=== PATIENT | female | born 1985 | race Caucasian/White ===

== ENCOUNTER 2017-09-09 14:25 | Emergency (ER) | payer SELFPAY ==
[2017-03-03 05:11] VITALS: Wt 51.3 kg
[~2017-09-09 14:25] MED LIST: AZIT-18 PO; BIRTH CONTROL PO; CYAN25004 PO; CYCL-343 PO; DOCU-416 PO; Docusate Calcium PO; FAMO-67 PO; IBUP-2708 PO; IBUP800T37 PO; Ibuprofen PO; LOR5/325 PO; Lanolin TP; Multivit/Min/Fol Ac/Iron/Pren PO; NIF10 PO; ONDA4TAB PO; OXYC-854 PO; PANT20TA27 PO; PANT40TA65 PO; PRED20TA6 PO; PREN-127 PO; RANI-324 PO; [UNRECOGNIZED DRUG - CODE] FT
[2017-09-09] MEDS ORDERED: ONDANSETRON 4 MG/2 ML VIAL IVP ONE (14:40)
[2017-09-09] MEDS ORDERED: NS(*) 0.9% 1000 ML BAG 1,000 ML IV ONE ×2 (14:40→16:50)
--- NOTE | 2017-09-09 14:43 | ER Report ---
History and Physical Time Seen By MD: 14:30 Hx. of Stated Complaint: all over abdominal pain HPI/ROS CHIEF COMPLAINT: Abdominal and back pain HISTORY OF PRESENT ILLNESS: 32-year-old female long history of pyelonephritis and frequent urinary tract infections also history of celiac disease comes to the emergency department today with complaint of increased frequency of urination and bilateral flank pain and subjective low-grade fevers nausea without vomiting no diarrhea pain is localized the suprapubic region without radiation no additional complaints noted REVIEW OF SYSTEMS: Respiratory: No cough, no dyspnea. Cardiovascular: No chest pain, no palpitations. Gastrointestinal: Suprapubic tenderness flank pain Musculoskeletal: Bilateral flank pain Remainder of the 14 system rev: Yes Allergies: Coded Allergies: gluten (Unverified Allergy, Intermediate, DIARRHEA, 09/09/17) Home Meds Discontinued Reported Medications Famotidine (FAMOTIDINE) 20 Mg Tablet, 20 MG PO QDAY, TAB 02/16/17 Ranitidine Hcl (ZANTAC) 150 Mg Tablet, 150 MG PO DAILY, TAB 07/29/16 Vits W-Ca,Fe,Fa(<1MG) ( VITAMINS) 1 Each Tablet, 1 EACH PO DAILY, TAB 07/29/16 Discontinued Scripts Ibuprofen (IBUPROFEN) 800 Mg Tablet, 800 MG PO Q8H@0300,1100,1900, #30 TAB 0 Refills Prov:JOSE NASH DO 03/04/17 Hydrocodone Bit/Acetaminophen (HYDROCODON-ACETAMINOPHEN 5-325) 1 Each Tablet, 1- 2 EACH PO Q4H Y for PAIN, #30 TAB 0 Refills Prov:JOSE NASH DO 03/04/17 Reviewed Nurses Notes: Yes Old Medical Records Reviewed: Yes Hx Smoking: No Smoking Status: Never Smoker Exposure to Second Hand Smoke?: No Hx Substance Use Disorder: No Hx Alcohol Use: No Constitutional Vital Sign - Last 24 Hours 09/09/17 09/09/17 09/09/17 09/09/17 14:30 14:55 15:10 15:25 Temp 98.8 Pulse 67 67 60 63 Resp 14 B/P (MAP) 110/69 Pulse Ox 96 93 93 97 O2 Delivery Room Air 09/09/17 09/09/17 09/09/17 15:30 15:45 16:00 Pulse 79 64 69 Pulse Ox 96 95 95 Intake and Output 09/09/17 09/09/1718 15:00 23:00 07:00 Intake Total 1000 ml Balance 1000 ml Physical Exam General Appearance: The patient is alert, has no immediate need for airway protection and no current signs of toxicity. [ ] Eyes: Pupils equal and round no injection. Respiratory: Chest is non tender, lungs are clear to auscultation. Cardiac: regular rate and rhythm [ ] Gastrointestinal: Abdomen is soft mild tenderness to deep palpation in suprapubic region otherwise unremarkable rebound guarding or masses Musculoskeletal: Neck: Neck is supple and non tender. Extremities have full range of motion and are non tender. Skin: No rashes or lesions. [ ] DIFFERENTIAL DIAGNOSIS: After history and physical exam differential diagnosis was considered for UTI pyelonephritis kidney stone Medical Decision Making Data Points Result Diagram: 09/09/17 1440 09/09/17 1440 Laboratory Hematology Test 09/09/17 14:40 09/09/17 14:44 Red Blood Count 5.29 M/uL (4.17-5.56) Mean Corpuscular Volume 88.3 fL (80.0-96.0) Mean Corpuscular Hemoglobin 30.0 pg (26.0-33.0) Mean Corpuscular Hemoglobin Concent 33.9 g/dL (32.0-36.0) Red Cell Distribution Width 13.1 % (11.5-14.5) Mean Platelet Volume 8.6 fL (7.2-11.1) Neutrophils (%) (Auto) 33.8 % (39.4-72.5) Lymphocytes (%) (Auto) 28.4 % (17.6-49.6) Monocytes (%) (Auto) 4.8 % (4.1-12.4) Eosinophils (%) (Auto) 32.4 % (0.4-6.7) Basophils (%) (Auto) 0.6 % (0.3-1.4) Nucleated RBC Relative Count (auto) 0.0 /100WBC Neutrophils # (Auto) 2.9 K/uL (2.0-7.4) Lymphocytes # (Auto) 2.5 K/uL (1.3-3.6) Monocytes # (Auto) 0.4 K/uL (0.3-1.0) Eosinophils # (Auto) 2.8 K/uL (0.0-0.5) Basophils # (Auto) 0.1 K/uL (0.0-0.1) Nucleated RBC Absolute Count (auto) 0.00 K/uL Peripheral Blood Smear Yes Y/N Prothrombin Time 13.4 seconds (12.0-14.4) Prothromb Time International Ratio 1.02 Activated Partial Thromboplast Time 30 seconds (23-35) Sodium Level 139 mmol/L (137-145) Potassium Level 3.4 mmol/L (3.5-5.0) Chloride Level 101 mmol/L (98-107) Carbon Dioxide Level 25 mmol/L (22-31) Blood Urea Nitrogen 18 mg/dl (7-18) Creatinine 0.90 mg/dl (0.52-1.04) Glomerular Filtration Rate Calc > 60.0 Random Glucose 83 mg/dl (75-110) Calcium Level 9.3 mg/dl (8.4-10.2) Total Bilirubin 0.6 mg/dl (0.2-1.3) Aspartate Amino Transf (AST/SGOT) 24 U/L (0-35) Alanine Aminotransferase (ALT/SGPT) 40 U/L (0-56) Alkaline Phosphatase 72 U/L (0-126) Total Protein 7.4 gm/dl (6.3-8.2) Albumin 4.3 g/dl (3.5-5.0) Lipase 114 U/L (23-300) Urine Color Straw Urine Clarity Clear Urine pH 6.0 pH (4.8-9.5) Urine Specific [place] 1.009 Urine Protein Negative mg/dL (NEGATIVE) Urine Glucose (UA) Negative mg/dL (NEGATIVE) Urine Ketones Trace mg/dL (NEGATIVE) Urine Blood Negative (NEGATIVE) Urine Nitrite Negative (NEGATIVE) Urine Bilirubin Negative (NEGATIVE) Urine Urobilinogen Negative mg/dL (0.2-1.9) Urine Leukocyte Esterase Trace (NEGATIVE) Urine RBC None /HPF (0-2/HPF) Urine WBC 1 /HPF (0-5/HPF) Urine Squamous Epithelial Cells Many /LPF (</=FEW) Urine Bacteria Negative /HPF (NONE-FEW) Urine Mucus None /HPF (NONE-FEW) Chemistry Test 09/09/17 14:40 09/09/17 14:44 White Blood Count 8.7 k/uL (4.5-11.0) Red Blood Count 5.29 M/uL (4.17-5.56) Hemoglobin 15.8 g/dL (12.0-16.0) Hematocrit 46.7 % (34.0-47.0) Mean Corpuscular Volume 88.3 fL (80.0-96.0) Mean Corpuscular Hemoglobin 30.0 pg (26.0-33.0) Mean Corpuscular Hemoglobin Concent 33.9 g/dL (32.0-36.0) Red Cell Distribution Width 13.1 % (11.5-14.5) Platelet Count 243 K/uL (150-450) Mean Platelet Volume 8.6 fL (7.2-11.1) Neutrophils (%) (Auto) 33.8 % (39.4-72.5) Lymphocytes (%) (Auto) 28.4 % (17.6-49.6) Monocytes (%) (Auto) 4.8 % (4.1-12.4) Eosinophils (%) (Auto) 32.4 % (0.4-6.7) Basophils (%) (Auto) 0.6 % (0.3-1.4) Nucleated RBC Relative Count (auto) 0.0 /100WBC Neutrophils # (Auto) 2.9 K/uL (2.0-7.4) Lymphocytes # (Auto) 2.5 K/uL (1.3-3.6) Monocytes # (Auto) 0.4 K/uL (0.3-1.0) Eosinophils # (Auto) 2.8 K/uL (0.0-0.5) Basophils # (Auto) 0.1 K/uL (0.0-0.1) Nucleated RBC Absolute Count (auto) 0.00 K/uL Peripheral Blood Smear Yes Y/N Prothrombin Time 13.4 seconds (12.0-14.4) Prothromb Time International Ratio 1.02 Activated Partial Thromboplast Time 30 seconds (23-35) Glomerular Filtration Rate Calc > 60.0 Calcium Level 9.3 mg/dl (8.4-10.2) Total Bilirubin 0.6 mg/dl (0.2-1.3) Aspartate Amino Transf (AST/SGOT) 24 U/L (0-35) Alanine Aminotransferase (ALT/SGPT) 40 U/L (0-56) Alkaline Phosphatase 72 U/L (0-126) Total Protein 7.4 gm/dl (6.3-8.2) Albumin 4.3 g/dl (3.5-5.0) Lipase 114 U/L (23-300) Urine Color Straw Urine Clarity Clear Urine pH 6.0 pH (4.8-9.5) Urine Specific [place] 1.009 Urine Protein Negative mg/dL (NEGATIVE) Urine Glucose (UA) Negative mg/dL (NEGATIVE) Urine Ketones Trace mg/dL (NEGATIVE) Urine Blood Negative (NEGATIVE) Urine Nitrite Negative (NEGATIVE) Urine Bilirubin Negative (NEGATIVE) Urine Urobilinogen Negative mg/dL (0.2-1.9) Urine Leukocyte Esterase Trace (NEGATIVE) Urine RBC None /HPF (0-2/HPF) Urine WBC 1 /HPF (0-5/HPF) Urine Squamous Epithelial Cells Many /LPF (</=FEW) Urine Bacteria Negative /HPF (NONE-FEW) Urine Mucus None /HPF (NONE-FEW) Coagulation Test 09/09/17 14:40 Prothrombin Time 13.4 seconds Prothromb Time International Ratio 1.02 Activated Partial Thromboplast Time 30 seconds Urinalysis Test 09/09/17 14:44 Urine Color Straw Urine Clarity Clear Urine pH 6.0 pH (4.8-9.5) Urine Specific [place] 1.009 Urine Protein Negative mg/dL (NEGATIVE) Urine Glucose (UA) Negative mg/dL (NEGATIVE) Urine Ketones Trace mg/dL (NEGATIVE) Urine Blood Negative (NEGATIVE) Urine Nitrite Negative (NEGATIVE) Urine Bilirubin Negative (NEGATIVE) Urine Urobilinogen Negative mg/dL (0.2-1.9) Urine Leukocyte Esterase Trace (NEGATIVE) Urine RBC None /HPF (0-2/HPF) Urine WBC 1 /HPF (0-5/HPF) Urine Squamous Epithelial Cells Many /LPF (</=FEW) Urine Bacteria Negative /HPF (NONE-FEW) Urine Mucus None /HPF (NONE-FEW) ED Course/Re-evaluation ED Course ED clinical course medical decision-making 32-year-old female comes in with bilateral lower back and flank discomfort or tenderness urinalysis shows no sign of infection CT scan looking for probable nephritis was negative for any acute intra-abdominal pathology is for labs are normal no obvious etiology of her low back discomfort however follow up with primary care diagnosis low back strain Decision to Disposition Date: Sep 09, 2017 Decision to Disposition Time: 16:51 Depart Departure Latest Vital Signs Vital Signs Date Time Temp Pulse Resp B/P (MAP) Pulse Ox O2 Delivery O2 Flow Rate FiO2 09/09/17 16:00 69 95 09/09/17 14:30 98.8 14 110/69 Room Air Impression: Primary Impression: Lumbar strain Condition: Improved Disposition: HOME OR SELF-CARE Referrals: ELSIE OCHOA MD (PCP) 5 Days Patient Instructions: Low Back Strain (DC) ODESSA ACOSTA MD Sep 09, 2017 14:43
[2017-09-09 14:49] LABS: PLATELET COUNT, AUTOMATED 243 K/uL (150-450)
[2017-09-09 15:09] LABS: INR 1.02
[2017-09-09] MEDS ORDERED: IOPAMIDOL 76% 75 ML INFUS BTL 75 ML ONE (15:52)
--- NOTE | 2017-09-09 16:48 | RADIOLOGY IMAGING REPORT ---
FACILITY: [facility] - [place] PATIENT NAME: Marcella Lowe : 1985 MR: [id number] V: [id number] EXAM DATE: ORDERING PHYSICIAN: ODESSA ACOSTA TECHNOLOGIST: Location: [facility] - [place] Patient: Marcella Lowe : 1985 Visit/Account:[id number] Date of Sevice: 09/09/2017 EXAMINATION: CT abdomen and pelvis with contrast COMPARISON: None. HISTORY: Right-sided abdominal pain. PROCEDURE: Multiplanar contrast enhanced CT of the abdomen and pelvis with 75 mL intravenous Isovue 3 70. One of the following dose optimization techniques was utilized in the performance of this exam: A utomated exposure control; adjustment of the mA and/or kV according to the patient's size; or use of an iterative reconstruction technique. Specific details can be referenced in the facility's radiolo gy CT exam operational policy. FINDINGS: Visualized thorax: No evidence of acute disease within the visualized lower thorax. Liver: Negative. Gallbladder and biliary system: Cholecystectomy. No bile duct dilation. Spleen: Spleen size is normal. Pancreas: Negative. Adrenal glands: Negative. Kidneys and bladder: Bilateral subcentimeter cysts. No renal mass or evidence of an obstructive uropa thy. Urinary bladder is unremarkable. Vessels: Within normal limits. Bowel and mesentery: Stomach is within normal limits. Small bowel and appendix are unremarkable. Mode rate amount of stool in the colon. No bowel or mesenteric inflammation. Pelvic organs: Negative. Lymph nodes: No adenopathy. Free air/free fluid: None. Abdominal wall and osseous structures: Negative. IMPRESSION: No evidence of active disease in the abdomen or pelvis. Report Dictated By: Ramone Joseph MD at 09/09/2017 4:30 PM Report E-Signed By: Ramone Joseph MD at 09/09/2017 4:43 PM WSN:[id number]
[2017-09-09 17:12] VITALS: BP 90/58
== END 2017-09-09 17:20 | disposition home or self-care (01) ==
LOC: ER 14:33
DX: S39.012A Strain of muscle, fascia and tendon of lower back, initial encounter (principal)
CPT/HCPCS: 74177; 81001; 81025; 83690; 85025; 85610; 85730; 87088; 96360; 96361; 99284; J7030; Q9967; 82040; 82247; 82310; 82374; 82435; 82565; 82947; 84075; 84132; 84155; 84295; 84450; 84460; 84520